=== PATIENT | female | born 1955 | race Caucasian/White ===

== ENCOUNTER → 2020-11-23 | Outpatient (CLI) | payer OTHER ==
[~2020-11-23] MED LIST: 24 HOUR ALLERG9.9 ML; ACCUPRIL40 MG PO; ALBUTEROL INH; ALLI60 MG PO; ATROVENT INH; COLACE 100MG C100 MG PO; DOC-Q-LACE100 MG PO; DYAZIDE 37.5/251 EA PO; ECOTRIN81 MG PO; HYDRALAZINE HCL50 MG PO; HYDROXYZINE HCL50 MG PO; IMDUR ER TAB 3030 MG PO; ISOSORBIDE MONO60 MG PO; LOPRESSOR 50 MG50 MG PO; LORATADINE10 MG PO; NAPROSYN500 MG PO; NITROGLYCERIN0.4 MG SL; NORCO 7.5-3251 EACH PO; OS-CAL 500+D31 EACH PO; PAIN RELIEF650 MG PO; PRAVACHOL80 MG PO; PROTONIX40 MG PO; SENNA-DOCUSATE1 EACH PO; SYMBICORT 16010.2 GM INH; VENTOLIN HFA 66.7 GM INH; VITAMIN B-121000 MC2 IM; VITAMIN D31250 MCG PO; VOLTAREN100 GM TP
== END ==
LOC: EMI 11-22 08:00 → KOH-I 13:29
DX: M47.812 Spondylosis without myelopathy or radiculopathy, cervical region (principal); M47.896 Other spondylosis, lumbar region; M25.78 Osteophyte, vertebrae; M48.02 Spinal stenosis, cervical region; M51.26 Other intervertebral disc displacement, lumbar region; M48.061 Spinal stenosis, lumbar region without neurogenic claudication; M47.817 Spondylosis without myelopathy or radiculopathy, lumbosacral region; M51.27 Other intervertebral disc displacement, lumbosacral region; M48.07 Spinal stenosis, lumbosacral region
CPT/HCPCS: 72141; 72148

== ENCOUNTER → 2020-12-07 | Day surgery (SDC) | payer OTHER | END | disposition home or self-care (01) | LOC: OR 05:34 | PROVIDERS: Surgery | PROC: 0DJ08ZZ Inspection of Upper Intestinal Tract, Via Natural or Artificial Opening Endoscopic (ICD-10-PCS; principal; 2020-12-07 07:30) | DX: K29.70 Gastritis, unspecified, without bleeding (principal); K21.9 Gastro-esophageal reflux disease without esophagitis; I10 Essential (primary) hypertension; J44.9 Chronic obstructive pulmonary disease, unspecified; I25.10 Atherosclerotic heart disease of native coronary artery without angina pectoris; F41.9 Anxiety disorder, unspecified; F32.9 Major depressive disorder, single episode, unspecified; M19.90 Unspecified osteoarthritis, unspecified site; G47.30 Sleep apnea, unspecified; E66.01 Morbid (severe) obesity due to excess calories; Z68.31 Body mass index [BMI] 31.0-31.9, adult; Z88.2 Allergy status to sulfonamides; Z79.82 Long term (current) use of aspirin; Z79.899 Other long term (current) drug therapy; Z79.51 Long term (current) use of inhaled steroids; Z87.891 Personal history of nicotine dependence; Z86.010 Personal history of colon polyps | CPT/HCPCS: J2704; J7030 ==

== ENCOUNTER → 2021-03-16 | Outpatient (CLI) | payer OTHER | LOC: EXRD 09:53 | DX: M25.561 Pain in right knee (principal) | CPT/HCPCS: 73564 ==

== ENCOUNTER → 2021-07-28 | Outpatient (CLI) | payer OTHER | LOC: EXRD 09:41 | DX: R05.9 Cough, unspecified (principal); R91.8 Other nonspecific abnormal finding of lung field | CPT/HCPCS: 71046 ==